=== PATIENT | male | born 1970 | race Caucasian/White ===

== ENCOUNTER 2020-08-02 13:42 | Emergency (ER) | payer OTHER, SELFPAY ==
[2020-08-02 13:43] VITALS: BP 115/78; PULSE 103; RESP 18; TEMP 36.3; O2SAT 98; BMI 27.4
[2020-08-02 14:00] VITALS: BP 108/79; PULSE 99; RESP 22; TEMP 38.1; O2SAT 95
[2020-08-02 15:00] VITALS: BP 116/78; PULSE 101; RESP 18; TEMP 37.7; O2SAT 96
[2020-08-02 15:27] VITALS: O2SAT 96
--- NOTE | 2020-08-02 15:27 | RAD_ITS ---
HISTORY: FEVER/CHILLS LAST 3 DAYS, SOB WITH ANY EXERTION AT HOME, AND COUGH, SORE THROAT. UNK IF COVID EXPOSURELOSS OF TASTE AND SMELL LAST MONDAY RETURNED ABOUT MONDAY ADDITIONAL HISTORY: None provided. COMPARISON: None TECHNIQUE: Frontal chest radiograph. Number of images including paperwork: 1 FINDINGS: LUNGS AND PLEURA: Patchy bilateral airspace opacities, selected on the left than the right. No pleural effusion or pneumothorax. CARDIAC SILHOUETTE: Unremarkable. MEDIASTINUM AND DELICIA: Unremarkable. UPPER ABDOMEN: Unremarkable. SKELETON AND SOFT TISSUES: No acute findings. OTHER DEVICES AND HARDWARE: None. RAD/Chest 1 View (Portable) IMPRESSION: Patchy bilateral pulmonary opacities concerning for infection. COVID 19 infection possible. at 1606 Reported and signed by: Savita Noriega MD Electronically Signed: Savita Noriega MD at 16:06 EDT Tel , Service support ,
--- NOTE | 2020-08-02 15:49 | ED.VIS.FLU ---
History of Present Illness Chief Complaint: Shortness of Breath Informant: Patient Known exposure: No Onset: Weeks - 1.5 Context: Gradual Onset Timing: Continuous Worsened by: Coughing, Exertion Associated Symptoms: Chills, Clear sputum, Cough, Fever Chest Pain: Tightness Narrative: Patient is a 49-year-old male with progressive respiratory symptoms. He presenting with his who also has similar symptoms. He states for the past week to week and a half he has had flulike symptoms including congestion, myalgias, fever/chills and sore throat. He did lose his sense of taste and smell a week ago but that returned about 2 days ago. Patient states he has been more short of breath with exertion over the past few days which is why he came to the emergency room today. He states is intermittent but sometimes when he is exerting himself he just has a harder time catching his breath. Patient denies any chest pain. No other complaints at this time. Past Medical History - Allergies and Home Meds Allergies/Adverse Reactions: Allergies No Known Allergies Allergy (Verified 08/02/20 13:45) Primary Care Physician: Livan Leiva DO [Primary Care Provider] - Past Medical History: None Surgical History: noncontributory Lives: Spouse/ Significant Other Smoking Status: Never smoker Review of Systems General: Reports: Chills, Fever, Malaise. Denies: Sweats ENT: Reports: Sore throat, - - Congestion. Denies: Bilateral ear pain, Rhinorrhea Cardiovascular: Denies: Chest pain, Palpitations Respiratory: Reports: Dyspnea, Cough, Dyspnea on exertion Gastrointestinal: Denies: Abdominal pain, Nausea, Vomiting, Diarrhea, Melena, Hematochezia Genitourinary: Denies: Dysuria, Hematuria, Frequency Musculoskeletal: Reports: Myalgias. Denies: Arthralgias, Swelling, Extremity Pain Skin: Denies: Rash Neurological: Denies: Headache, Weakness, Numbness Physical Exam Vital Signs/Narrative: Vital Signs Temp Pulse Resp BP Pulse Ox 08/02/20 14:00 100.5 F H 99 22 H 108/79 95 08/02/20 13:43 97.3 F L 103 H 18 115/78 98 Inital Vital Signs reviewed: Yes General: Well nourished, Well developed Head: Normocephalic, Atraumatic Eyes: Perrl, EOMI ENT: Moist mucous membranes, TM's clear. Negative for: Sinus tenderness Neck: Supple, Nontender, No lymphadenopathy, No JVD Cardiovascular: Regular rate, Regular rhythm, No murmurs Respiratory: - - Crackles at the bases bilaterally. Negative for: No distress, Rales, Wheezing, Diminished, Retractions Abdomen: Soft, Nontender, Nondistended, Normal bowel sounds Back: Nontender, Normal Inspection Extremities: Nontender, No edema Skin: Normal color, No rash Neurological: Alert, Oriented x3, Cranial nerves II-XII grossly intact, Normal Strength, Normal Sensation Psychological: Normal affect Diagnostic/Tx/Re-eval Chest X-Ray - ED: 1 View, Read by ED Physician, Read by Radiologist, - - Multi focal infiltrate consistent with viral pneumonia Clinical Impression(s) from Imaging Studies Chest X-Ray 08/02/20 15:27 IMPRESSION: Patchy bilateral pulmonary opacities concerning for infection. COVID 19 infection possible. at 1606 Reported and signed by: Savita Noriega MD Electronically Signed: Savita Noriega MD at 16:06 EDT Tel , Service support , - Medical Decision Making Patient is evaluated for a week to week and a half of viral symptoms that have now progressed into worsening shortness of breath. Patient peers nontoxic in no acute distress. He has a low-grade temperature in the ER and clinically appears like he is spiking a fever. His clinical presentation is consistent with coronavirus infection. Chest x-ray is consistent with viral pneumonia and COVID-19. Patient is ambulated in the ER and does not have any hypoxia. At this time I do not think he requires admission I do not think he requires further blood work do not think we will change his disposition. Patient is counseled that should he have worsening shortness of breath/worsening respiratory symptoms he should return the emergency room is there is a chance he could get worse before he gets better. Patient be discharged with Tesadánon Brandi to help with cough. He is instructed take Mucinex at home. He is instructed to alternate Tylenol and ibuprofen. He is given dose of Tylenol in the ER. Patient is counseled on signs and symptoms requiring return to the emergency room. Patient verbalizes agreement and understand this plan. Patient discharged home in stable and improved condition. ED Disposition - Plan for ED Patient: Disposition: Home or Assisted Living Diagnosis: Suspected COVID-19 virus infection, Viral pneumonia Instructions: ED PNEUMONITIS Adult Prescriptions: Benzonatate [Tessalon Perle] 200 mg PO TID PRN PRN #20 cap PRN Reason: Cough Prescription Printed Referrals: Livan Leiva DO [Primary Care Provider] - Additional Instructions: Alternate Tylenol and ibuprofen as needed for fever and discomfort. If you start having signs of dehydration or worsening respiratory symptoms please return to the emergency room for further evaluation. At this time you do not require admission.
[2020-08-02 17:00] VITALS: BP 107/76; PULSE 93; RESP 19; TEMP 37.6; O2SAT 94
[2020-08-02] MEDS: Acetaminophen 500 MG Tablet 1000 MG PO (17:07)
[2020-08-02 17:32] VITALS: PULSE 90; RESP 18
== END 2020-08-02 17:33 | disposition home or self-care (01) ==
PROVIDERS: Emergency Provider Emergency Medicine; PCP Family Medicine
DX: U07.1 COVID-19 (principal); J12.89 Other viral pneumonia
CPT/HCPCS: 71045; 87635; 99283; A4216; U0003

== ENCOUNTER 2021-01-05 08:49 | Emergency (ER) | payer OTHER, SELFPAY ==
[2021-01-05 08:50] VITALS: BP 126/84; PULSE 72; RESP 16; TEMP 36.1; O2SAT 99; BMI 27.4
--- NOTE | 2021-01-05 09:13 | ED.VISSUMM ---
- ER Visit Summary Date of Service: 01/05/21 Chief Complaint: Laceration to left ear [] History of Present Illness: The patient is a 50 M [presents to the emergency department with complaint of a laceration to the left ear that occurred while at work. Patient states that a piece of the railing fell and the sharp edge lacerated his left ear. Patient unsure of his last tetanus. He denies any other injuries.] Physical Examination: [HEENT-PERRLA, EOMI. Cranial nerves II through XII grossly intact. TMs clear. Mucous membranes moist. No adenopathy. Dear-patient has a through and through laceration of the lower portion of the left earlobe. No evidence of cartilage involvement noted. Cardiovascular-regular rate and rhythm without murmur or ectopy Lungs-clear to auscultation, chest wall stable without crepitus or subcu emphysema Abdomen-normoactive bowel sounds, soft, nontender, no rebound or rigidity, no peritoneal signs. Extremities-intact ?4, normal range of motion, normal pulses, atraumatic] Test Results: [] Emergency Department Course and Treatment: [Laceration repair-left ear sterilely draped and prepped. Wound cleansed with Shur-Clens and irrigated with copious saline. Using 1% lidocaine total of 4 cc used to locally anesthetize the ear. Using 6-0 nylon a total of 8 single interrupted sutures placed with good wound edge approximation. Patient tolerated procedure well.] Treatment Plan: [Patient will be started on Keflex empirically for 5 days. Patient advised to follow-up with his primary care physician in 7 to 10 days for suture removal.] Disposition: [Discharged home in stable condition] Impression: [Left earlobe laceration 3 cm-through and through with simple repair] This note was generated with [employer] dictation software. It may contain incorrect words, spelling, and punctuation that were not noted in review of the chart prior to signing ED Disposition - Plan for ED Patient: Referrals: Livan Leiva DO [Primary Care Provider] -
--- NOTE | 2021-01-05 09:17 | ED.RN ---
pt works at [employer] and uses [facility] [employer] not c, no drug screen requirements in our system.
[2021-01-05] MEDS: Lidocaine 1% (20 ml mdv) 20 ML Vial 4 ML INFILT (10:00)
--- NOTE | 2021-01-05 10:10 | ED.DEP ---
ED Disposition - Plan for ED Patient: Instructions: ED Laceration, Face: Stitches or Tape Prescriptions: Cephalexin [Keflex] 500 mg PO Q6 #20 capsule Prescription Printed Referrals: Livan Leiva DO [Primary Care Provider] - 7 Days for suture removal
[2021-01-05] MEDS: Diphth,Pertuss(Acell),Tet Vac 0.5 ML Vial IM (10:14)
[2021-01-05 10:46] VITALS: BP 122/79; PULSE 76; RESP 15; O2SAT 98
[2021-01-05] MEDS: Cephalexin 250 MG Capsule 500 MG PO (10:48)
--- NOTE | 2021-01-05 10:55 | ED.RN ---
pt observed for shot time greater than 15 min, no reaction was noted by this rn. pt d/c
== END 2021-01-05 10:56 | disposition home or self-care (01) ==
LOC: ED 09:37
PROVIDERS: Emergency Provider Emergency Medicine; PCP Family Medicine
DX: S01.312A Laceration without foreign body of left ear, initial encounter (principal); W26.8XXA Contact with other sharp object(s), not elsewhere classified, initial encounter; Y93.9 Activity, unspecified; Y92.9 Unspecified place or not applicable; Y99.0 Civilian activity done for income or pay
CPT/HCPCS: 12013; 90471; 90715; 99283